=== PATIENT | female | born 1990 | race Caucasian/White ===

== ENCOUNTER → 2017-11-07 | Day surgery (SDC) | payer OTHER ==
[~2017-11-07] VITALS: Ht 162.6 cm; Wt 55.0 kg
[~2017-11-07] MED LIST: AMPICILLIN/SULBAC 3 GM/NS 100 ML IV PRN; BIRTH CONTROL PO; CHLORHEXIDINE GLUCONATE 2 % 1 PACK (2 CLOTHS) TOPICAL PRN; IRON18TA PO; LACTATED RINGER'S 1000 ML IV PRN; LIDOCAINE 1%/EPINEPHrine 1:100,000 SOLN 20 ML VIAL ONE; METOPROLOL TARTRATE 25 MG TAB PO PRN; MIDAZOLAM HCL 2 MG/2 ML VIAL ONE; OXYMETAZOLINE HCL 0.05% 15 ML NASAL SPRAY ONE; POVIDONE IODINE 5% (ANTISEPSIS KIT) 4 APPLICATIONS EACH NARE PRN; SODIUM CHLORID 0.9% 500 ML IV PRN
[2017-11-07 08:24] VITALS: PULSE 79
[2017-11-07 09:00] VITALS: PULSE 78; TEMP 98.2
[2017-11-07 10:15] VITALS: BP 140/83; PULSE 63; RESP 14; O2SAT 100
--- NOTE | 2017-11-10 13:33 | MP ---
cc: Ham Newby MD DATE OF OPERATION: 11/07/2017 DATE OF SURGERY: 11/07/2017 SURGEON: Ham Newby MD PREOPERATIVE DIAGNOSES: 1. Chronic sinusitis. 2. Sinonasal polyposis. POSTOPERATIVE DIAGNOSES: 1. Chronic sinusitis. 2. Sinonasal polyposis. OPERATION PERFORMED: 1. Endoscopic maxillary antrostomy with removal of maxillary sinus tissue. 2. Bilateral endoscopic exploration of frontal sinus ducts with balloon sinus dilation. INDICATION FOR PROCEDURE: Documented in the history and physical. DESCRIPTION OF PROCEDURE: The patient was taken to OR #2 and placed in the supine position. Following induction of general anesthesia and intubation, the nose was packed bilaterally with cotton pledgets saturated in 0.05% oxymetazoline. These remained in place for a period of 5 minutes, the packing was then removed and the nose was examined endoscopically. There was polypoid tissue prolapsing from the maxillary ostium of both sides, obstructing the nasal airway. This is left side greater than right. Left side was addressed first beginning with an upbiting Blakesley forceps. This was placed into the maxillary ostium toward the root of the polypoid tissue. It was then avulsed from its attachment in the maxillary sinus. This came out fairly easily and was passed off the field as specimen. Additional tissue was removed from the maxillary sinus using the power microdebrider. The right maxillary was then operated in the same fashion. Attention was then directed to the balloon dilation of the frontal sinuses. CT scan there showed there to be significant opacification of frontal duct cells. Left side was addressed first. The Acclarent balloon technique was used. The guidewire was advanced into the frontal sinus and the balloon then advanced over the guidewire. It was inflated at 2 levels superiorly and inferiorly at the junction with the ethmoid cells to a pressure of 12 atmospheres. It was then removed. Inspection of the duct showed to be generally patent. The right side was operated in the same fashion with the same findings. The nose was then irrigated and suctioned. The nasal vault was packed bilaterally with cotton pledgets saturated in oxymetazoline. These remained in place until the patient was ready to depart the hospital. They were removed prior to release from the recovery room. Blood loss was 80 mL. There were no complications. MD DWAIN Jordan/JULISSA , 12:58 PM , 01:32 PM
== END | disposition home or self-care (01) ==
LOC: PHSDC 06:05
PROVIDERS: ATTEND Otolaryngology
DX: J32.9 Chronic sinusitis, unspecified (principal); J33.8 Other polyp of sinus; R09.81 Nasal congestion; J34.3 Hypertrophy of nasal turbinates; R09.82 Postnasal drip
CPT/HCPCS: 00160; 31267; 31296; 88304; J0295; J2250; J3010; J7120; 88305; 88311